=== PATIENT | female | born 2000 | race Caucasian/White ===

== ENCOUNTER 2019-06-23 19:44 | Emergency (ER) | payer MEDICAID ==
[~2019-06-23] VITALS: Ht 170.2 cm; Wt 50.8 kg
[2019-06-23 19:52] VITALS: Ht 170.2 cm; Wt 50.8 kg
[2019-06-23 21:20] VITALS: BP 108/66
== END 2019-06-23 21:20 | disposition home or self-care (01) ==
LOC: ED 19:44
DX: R07.89 Other chest pain (principal)
CPT/HCPCS: Q0092

== ENCOUNTER 2019-07-17 20:22 | Emergency (ER) | payer MEDICAID ==
[~2019-07-17] VITALS: Ht 170.2 cm; Wt 50.8 kg
[2019-07-17 20:30] VITALS: Ht 170.2 cm; Wt 50.8 kg
[2019-07-17 23:54] VITALS: BP 110/70
== END 2019-07-17 23:54 | disposition home or self-care (01) ==
LOC: ED 20:22
DX: R07.9 Chest pain, unspecified (principal); R06.02 Shortness of breath; R20.0 Anesthesia of skin; R20.2 Paresthesia of skin

== ENCOUNTER 2019-08-04 00:42 | Emergency (ER) | payer MEDICAID ==
[~2019-08-04] VITALS: Ht 170.2 cm; Wt 49.9 kg
[2019-08-04 00:51] VITALS: Ht 170.2 cm; Wt 49.9 kg
[2019-08-04 02:08] LABS: AMPHETAMINE QUAL UR NONE DETECTED (See below)
[2019-08-04 02:34] VITALS: BP 109/63
== END 2019-08-04 02:34 | disposition home or self-care (01) ==
LOC: ED 00:42
PROVIDERS: Emergency Medicine
DX: R07.89 Other chest pain (principal); M54.12 Radiculopathy, cervical region
CPT/HCPCS: Q0092

== ENCOUNTER 2020-02-24 09:10 | Emergency (ER) | payer MEDICAID ==
[~2020-02-24] VITALS: Ht 170.2 cm; Wt 52.6 kg
[2020-02-24 09:16] VITALS: Ht 170.2 cm; Wt 52.6 kg
[2020-02-24 10:04] LABS: BASOPHIL % 0.4 % (0-2); PLATELET COUNT 276 x10^3mcL (130-400); RED CELL DISTRIBUTION WIDTH 13.9 % (11.5-14.5)
[2020-02-24 10:32] LABS: CARBON DIOXIDE 27.4 mmol/L (21-32); CHLORIDE SERUM 103 mmol/L (98-107); CREATININE SERUM 0.8 mg/dL (0.6-1.0); GFR1 > 60 mL/min; GLUCOSE SERUM 89 mg/dL (74-106); POTASSIUM SERUM 3.5 mmol/L (3.5-5.1); SODIUM SERUM 138 mmol/L (136-145)
[2020-02-24 10:38] LABS: ALKALINE PHOSPHATASE 51 U/L (46-116); ALT/SGPT 19 U/L (14-59); AST/SGOT 16 U/L (15-37); BILIRUBIN TOTAL 0.6 mg/dL (0.20-1.00); LIPASE 81 IU/L (73-393); TOTAL PROTEIN, SERUM 7.2 g/dL (6.4-8.2)
[2020-02-24 11:55] VITALS: BP 106/60
== END 2020-02-24 11:50 | disposition home or self-care (01) ==
LOC: ED 09:10
PROVIDERS: Emergency Medicine
DX: N83.201 Unspecified ovarian cyst, right side (principal)
CPT/HCPCS: J2270; J2405; J7030

== ENCOUNTER 2020-03-20 21:57 | Emergency (ER) | payer MEDICAID ==
[~2020-03-20] VITALS: Ht 170.2 cm; Wt 54.9 kg
[2020-03-20 23:20] VITALS: BP 110/68
== END 2020-03-20 23:20 | disposition home or self-care (01) ==
LOC: ED 21:57
DX: L50.9 Urticaria, unspecified (principal)
CPT/HCPCS: J1200; J7512

== ENCOUNTER 2020-04-09 23:53 | Emergency (ER) | payer MEDICAID ==
[~2020-04-09] VITALS: Ht 170.2 cm; Wt 56.2 kg
[2020-04-10 00:09] VITALS: Ht 170.2 cm; Wt 56.2 kg
[2020-04-10 01:35] VITALS: BP 111/56
== END 2020-04-10 01:35 | disposition home or self-care (01) ==
LOC: ED 23:53
DX: T78.40XA Allergy, unspecified, initial encounter (principal); X58.XXXA Exposure to other specified factors, initial encounter
CPT/HCPCS: J1200; J7512

== ENCOUNTER 2020-05-09 01:04 | Emergency (ER) | payer MEDICAID ==
[~2020-05-09] VITALS: Ht 170.2 cm; Wt 56.2 kg
[2020-05-09 01:44] VITALS: Ht 170.2 cm; Wt 56.2 kg
[2020-05-09 02:52] VITALS: BP 109/64
== END 2020-05-09 02:52 | disposition left against medical advice (07) ==
LOC: ED 01:04
DX: Z53.21 Procedure and treatment not carried out due to patient leaving prior to being seen by health care provider (principal)

== ENCOUNTER 2020-05-31 23:44 | Emergency (ER) | payer MEDICAID ==
[~2020-05-31] VITALS: Ht 170.2 cm; Wt 55.3 kg
[2020-05-31 23:45] VITALS: Ht 170.2 cm; Wt 55.3 kg
[2020-06-01 05:35] VITALS: BP 90/52
== END 2020-06-01 05:35 | disposition home or self-care (01) ==
LOC: ED 23:44
DX: T78.2XXA Anaphylactic shock, unspecified, initial encounter (principal); T78.40XA Allergy, unspecified, initial encounter; X58.XXXA Exposure to other specified factors, initial encounter
CPT/HCPCS: J0171; J7512; Q0163